=== PATIENT | female | born 1985 | race Caucasian/White ===

== ENCOUNTER 2024-10-06 23:36 | Emergency (ER) | payer SELFPAY ==
[~2024-10-06] VITALS: Ht 157.5 cm; Wt 67.0 kg
[2024-10-06 23:42] VITALS: BP 121/65; PULSE 84; RESP 16; TEMP 97.5; O2SAT 98
[2024-10-06] MEDS ORDERED: PHEN-716 PO (23:56)
[2024-10-06] MEDS ORDERED: CEPH-585 PO (23:56)
[2024-10-07 00:09] LABS: BILIRUBIN,URINE NEGATIVE (Neg); CLARITY,URINE CLOUDY (Clear); COLOR,URINE YELLOW (Yellow); GLUCOSE, URINE NEGATIVE (Neg); KETONES,URINE TRACE mg/dl (Neg); LEUKOCYTE ESTERASE ,URINE SMALL (Neg); OCCULT BLOOD,URINE LARGE (Neg); PH,URINE 5.5 (4.8-8.0); PROTEIN,URINE 100 mg/dl (Neg); UROBILINOGEN,URINE 0.2 E.U/dL (0.2-1.0)
[2024-10-07 00:11] LABS: UA COLLECTION TYPE CLN CATCH MIDSTREAM
[2024-10-07 00:15] LABS: NITRITES, URINE NEGATIVE (Neg)
[2024-10-07 00:16] LABS: BACTERIA,URINE 1+ /HPF (Neg); WBC,URINE TNTC /HPF (0-4)
[2024-10-07 00:17] LABS: MUCUS STRANDS MODERATE /LPF (Neg); SQUAMOUS EPITHELIAL CELL,UR FEW /LPF (FEW)
[2024-10-07] MEDS: phenazopyridine 100mg tablet PO ONE (00:28)
[2024-10-07] MEDS: CefTRIAXone 1000mg IM Kit (w/lidocaine diluent) IM ONE (00:28)
== END 2024-10-07 00:43 | disposition home or self-care (01) ==
LOC: ER 23:37
DX: N39.0 Urinary tract infection, site not specified (principal)
CPT/HCPCS: 81001; 87088; 96372; 99283; J0696; 81003; 87186